=== PATIENT | female | born 1945 ===

== ENCOUNTER 2020-05-16 08:34 | Inpatient (IN) ==
[2020-05-16 09:22] LABS: Basophils % 0.1 % (0.0-0.8); Hematocrit 32.9 VOL% (35.7-47.0); Hemoglobin 11.8 GM/DL (12.0-16.0); Immature Granulocytes % 0.5 %; Immature Granulocytes Absolute 0.05 #; Lymphocytes # 0.7 10*3/uL (1.4-4.0); Mean Corpuscular HGB Conc 35.9 GM/DL (32-36); Mean Corpuscular Volume 82.3 FL (87-102); Mean Platelet Volume 9.4 FL (9.6-12.0); Monocytes % 3.9 % (1.7-12.7); Neutrophils % 88.5 % (38.7-73.9); Platelet Count 274 T/CUMM (130-400); Red Cell Distribution Width 15.8 % (9.3-17.3); White Blood Count 9.7 T/CUMM (4-12)
[2020-05-16] MEDS ORDERED: LEVOFLOXACIN INJ 750 MG in PREMIX 1 EACH IV STA (09:36)
[2020-05-16 09:45] LABS: Albumin 3.1 G/DL (3.4-5.0); Bilirubin,Total 0.6 MG/DL (0.2-1.0); Calcium 8.6 MG/DL (8.5-10.1); Osmolality,Calculated 260.9 MOS/KG (273-304); Potassium 3.4 MMOL/L (3.5-5.1); Total Protein 7.7 G/DL (6.4-8.3)
[2020-05-16] MEDS ORDERED: DEXTROSE 50% 25 GM/50 ML VIAL IV PRN (10:48)
[2020-05-16] MEDS ORDERED: ONDANSETRON 4 MG/2 ML VIAL IV PRN (10:48)
[2020-05-16] MEDS ORDERED: GLUCAGON 1 MG VIAL IM PRN (10:48)
[2020-05-16] MEDS: ENOXAPARIN 40 MG/0.4 ML SYRINGE SUBCUT SCH (11:23)
[2020-05-16] MEDS: DEXAMETHASONE 4 MG/1 ML VIAL IV SCH (11:26)
[2020-05-16] MEDS: POTASSIUM CHLORIDE 20 MEQ TABLET PO PRN ×3 (14:58→20:54)
[2020-05-16] MEDS ORDERED: ALBUTEROL 2.5 MG/3 ML NEB RESP TX PRN (16:53)
[2020-05-16] MEDS: MELATONIN 3 MG TABLET PO PRN (20:54)
[2020-05-16] MEDS: ASCORBIC ACID 500 MG TABLET PO SCH (20:54)
[2020-05-16] MEDS: guaiFENesin 200 MG/10 ML UDCUP PO PRN (22:08)
[2020-05-17 06:32] LABS: Hematocrit 34.8 VOL% (35.7-47.0); Hemoglobin 12.2 GM/DL (12.0-16.0); Immature Granulocytes % 0.5 %; Immature Granulocytes Absolute 0.04 #; Lymphocytes # 0.8 10*3/uL (1.4-4.0); Lymphocytes % 9.4 % (21.3-54.2); Mean Corpuscular HGB Conc 35.1 GM/DL (32-36); Mean Corpuscular Volume 84.3 FL (87-102); Mean Platelet Volume 9.5 FL (9.6-12.0); Monocytes % 8.3 % (1.7-12.7); Neutrophils % 81.8 % (38.7-73.9); Platelet Count 317 T/CUMM (130-400); Red Blood Count 4.13 MC/CUMM (3.8-5.5); White Blood Count 8.2 T/CUMM (4-12)
[2020-05-17 08:15] LABS: Albumin 3.1 G/DL (3.4-5.0); Calcium 8.9 MG/DL (8.5-10.1); Osmolality,Calculated 264.7 MOS/KG (273-304); Potassium 4.2 MMOL/L (3.5-5.1); Risk Ratio 1.78; Thyroid Stimulating Hormone 0.247 uIU/ml (0.358-3.74); VLDL CHOLESTEROL 29.4 MG/DL
[2020-05-17 08:39] LABS: Ferritin 2309.9 ng/ml (8-252)
[2020-05-17] MEDS: guaiFENesin 200 MG/10 ML UDCUP PO PRN ×3 (10:02→20:20)
[2020-05-17] MEDS: ZINC GLUCONATE 50 MG TABLET PO SCH (10:05)
[2020-05-17] MEDS: PANTOPRAZOLE 40 MG TABLET PO SCH (10:05)
[2020-05-17] MEDS: ASCORBIC ACID 500 MG TABLET PO SCH ×2 (10:05→20:20)
[2020-05-17] MEDS: CETIRIZINE 10 MG TABLET PO SCH (10:05)
[2020-05-17] MEDS: ENOXAPARIN 40 MG/0.4 ML SYRINGE SUBCUT SCH (10:05)
[2020-05-17] MEDS: DEXAMETHASONE 4 MG/1 ML VIAL IV SCH (10:05)
[2020-05-17] MEDS: hydroCHLOROthiazide 25 MG TABLET PO SCH (10:05)
[2020-05-17] MEDS: CHOLECALCIFEROL 1,000 UNIT TABLET PO SCH (10:05)
[2020-05-17] MEDS: SODIUM CHLORIDE 0.9% 1,000 ML IV SCH (11:20)
[2020-05-17] MEDS: PREGABALIN 100 MG CAPSULE PO SCH ×2 (11:25→20:20)
[2020-05-17] MEDS ORDERED: PREGABALIN 100 MG CAPSULE PO SCH (16:53)
[2020-05-17] MEDS: ACETAMINOPHEN 325 MG TABLET PO PRN (20:20)
[2020-05-17] MEDS: MELATONIN 3 MG TABLET PO PRN (20:20)
[2020-05-18] MEDS: SODIUM CHLORIDE 0.9% 1,000 ML IV SCH (04:05)
[2020-05-18 07:15] LABS: Basophils % 0.1 % (0.0-0.8); Eosinophils % 0.1 % (0.00-10.9); Hematocrit 31.3 VOL% (35.7-47.0); Hemoglobin 11.2 GM/DL (12.0-16.0); Immature Granulocytes % 0.7 %; Immature Granulocytes Absolute 0.06 #; Lymphocytes # 0.9 10*3/uL (1.4-4.0); Lymphocytes % 9.6 % (21.3-54.2); Mean Corpuscular HGB Conc 35.8 GM/DL (32-36); Mean Corpuscular Volume 83.2 FL (87-102); Mean Platelet Volume 9.8 FL (9.6-12.0); Monocytes % 9.1 % (1.7-12.7); Neutrophils % 80.4 % (38.7-73.9); Platelet Count 340 T/CUMM (130-400); Red Blood Count 3.76 MC/CUMM (3.8-5.5); Red Cell Distribution Width 15.9 % (9.3-17.3); White Blood Count 8.8 T/CUMM (4-12)
[2020-05-18 07:26] LABS: Albumin 2.8 G/DL (3.4-5.0); Bilirubin,Direct 0.15 MG/DL (0.0-0.20); Bilirubin,Indirect 0.9 MG/DL (0.0-1.0); Calcium 8.2 MG/DL (8.5-10.1); Osmolality,Calculated 269.1 MOS/KG (273-304); Potassium 3.8 MMOL/L (3.5-5.1); Total Protein 7.1 G/DL (6.4-8.3); Total Protein 7.2 G/DL (6.4-8.3)
[2020-05-18 07:45] LABS: PT Patient Result 10.3 SECS (9.8-11.9); Partial Thromboplastin Time 27.8 SECS (23.9-33.8)
[2020-05-18 09:19] LABS: Hepatitis B Core IgM Quant 0.34 Index; Hepatitis B Surface Ag Quant < 0.10 Index; Hepatitis B Surface Ag Result Non-Reactive (NonReactive); Hepatitis C Virus Ab Quant 0.06 Index; Hepatitis C Virus Ab Result Non-Reactive (NonReactive)
[2020-05-18] MEDS: LEVOFLOXACIN INJ 750 MG in PREMIX 1 EACH IV SCH (09:40)
[2020-05-18] MEDS: CETIRIZINE 10 MG TABLET PO SCH (09:40)
[2020-05-18] MEDS: PREGABALIN 100 MG CAPSULE PO SCH ×2 (09:40→20:42)
[2020-05-18] MEDS: CHOLECALCIFEROL 1,000 UNIT TABLET PO SCH (09:40)
[2020-05-18] MEDS: DEXAMETHASONE 4 MG/1 ML VIAL IV SCH (09:40)
[2020-05-18] MEDS: ASCORBIC ACID 500 MG TABLET PO SCH ×2 (09:40→20:42)
[2020-05-18] MEDS: PANTOPRAZOLE 40 MG TABLET PO SCH (09:40)
[2020-05-18] MEDS: hydroCHLOROthiazide 25 MG TABLET PO SCH (09:40)
[2020-05-18] MEDS: ZINC GLUCONATE 50 MG TABLET PO SCH (09:40)
[2020-05-18] MEDS: ENOXAPARIN 40 MG/0.4 ML SYRINGE SUBCUT SCH (10:00)
[2020-05-18] MEDS ORDERED: REMDESIVIR 200 MG in SODIUM CHLORIDE 0.9% 210 ML IV ONE (11:30)
[2020-05-18] MEDS: MELATONIN 3 MG TABLET PO PRN (20:42)
[2020-05-19 04:04] LABS: Basophils % 0.2 % (0.0-0.8); Eosinophils % 0.1 % (0.00-10.9); Hematocrit 34.4 VOL% (35.7-47.0); Hemoglobin 11.9 GM/DL (12.0-16.0); Immature Granulocytes % 1.1 %; Immature Granulocytes Absolute 0.11 #; Lymphocytes # 1.3 10*3/uL (1.4-4.0); Lymphocytes % 12.7 % (21.3-54.2); Mean Corpuscular HGB Conc 34.6 GM/DL (32-36); Mean Corpuscular Volume 83.3 FL (87-102); Mean Platelet Volume 9.1 FL (9.6-12.0); Monocytes % 13.5 % (1.7-12.7); Neutrophils % 72.4 % (38.7-73.9); Platelet Count 412 T/CUMM (130-400); Red Blood Count 4.13 MC/CUMM (3.8-5.5)
[2020-05-19 04:28] LABS: Albumin 3.1 G/DL (3.4-5.0); Bilirubin,Direct 0.17 MG/DL (0.0-0.20); Bilirubin,Indirect 0.4 MG/DL (0.0-1.0); Bilirubin,Total 0.6 MG/DL (0.2-1.0); Calcium 8.3 MG/DL (8.5-10.1); Total Protein 7.5 G/DL (6.4-8.3)
[2020-05-19 04:31] LABS: Albumin 3.1 G/DL (3.4-5.0); Bilirubin,Total 1.3 MG/DL (0.2-1.0); Calcium 8.4 MG/DL (8.5-10.1); Osmolality,Calculated 273.8 MOS/KG (273-304); Potassium 3.8 MMOL/L (3.5-5.1); Total Protein 7.5 G/DL (6.4-8.3)
[2020-05-19 04:44] LABS: Ferritin 2332.4 ng/ml (8-252)
[2020-05-19] MEDS: hydroCHLOROthiazide 25 MG TABLET PO SCH (08:01)
[2020-05-19] MEDS: ZINC GLUCONATE 50 MG TABLET PO SCH (08:01)
[2020-05-19] MEDS: CHOLECALCIFEROL 1,000 UNIT TABLET PO SCH (08:01)
[2020-05-19] MEDS: PANTOPRAZOLE 40 MG TABLET PO SCH (08:01)
[2020-05-19] MEDS: CETIRIZINE 10 MG TABLET PO SCH (08:01)
[2020-05-19] MEDS: ASCORBIC ACID 500 MG TABLET PO SCH ×2 (08:01→23:06)
[2020-05-19] MEDS: PREGABALIN 100 MG CAPSULE PO SCH ×2 (08:01→23:06)
[2020-05-19] MEDS: DEXAMETHASONE 4 MG/1 ML VIAL IV SCH (08:02)
[2020-05-19] MEDS: REMDESIVIR 100 MG in SODIUM CHLORIDE 0.9% 100 ML IV SCH (09:05)
[2020-05-19] MEDS: ENOXAPARIN 40 MG/0.4 ML SYRINGE SUBCUT SCH (10:13)
[2020-05-19] MEDS: ACETAMINOPHEN 325 MG TABLET PO PRN (23:07)
[2020-05-20 05:46] LABS: Basophils % 0.1 % (0.0-0.8); Eosinophils % 0.2 % (0.00-10.9); Hematocrit 35.1 VOL% (35.7-47.0); Hemoglobin 12.7 GM/DL (12.0-16.0); Lymphocytes # 1.2 10*3/uL (1.4-4.0); Lymphocytes % 7.9 % (21.3-54.2); Mean Corpuscular HGB Conc 36.2 GM/DL (32-36); Mean Corpuscular Volume 81.8 FL (87-102); Mean Platelet Volume 9.1 FL (9.6-12.0); Monocytes % 10.5 % (1.7-12.7); Neutrophils % 79.3 % (38.7-73.9); Platelet Count 428 T/CUMM (130-400); Red Blood Count 4.29 MC/CUMM (3.8-5.5); Red Cell Distribution Width 15.9 % (9.3-17.3); White Blood Count 14.7 T/CUMM (4-12)
[2020-05-20 06:27] LABS: Bilirubin,Total 1.7 MG/DL (0.2-1.0); Calcium 8.9 MG/DL (8.5-10.1); Ferritin 2092.7 ng/ml (8-252); Osmolality,Calculated 269.2 MOS/KG (273-304); Potassium 3.2 MMOL/L (3.5-5.1); Total Protein 7.7 G/DL (6.4-8.3)
[2020-05-20] MEDS: REMDESIVIR 100 MG in SODIUM CHLORIDE 0.9% 100 ML IV SCH (08:54)
[2020-05-20] MEDS: LEVOFLOXACIN INJ 750 MG in PREMIX 1 EACH IV SCH (08:55)
[2020-05-20] MEDS: ASCORBIC ACID 500 MG TABLET PO SCH ×2 (08:59→20:56)
[2020-05-20] MEDS: CETIRIZINE 10 MG TABLET PO SCH (08:59)
[2020-05-20] MEDS: hydroCHLOROthiazide 25 MG TABLET PO SCH (08:59)
[2020-05-20] MEDS: PREGABALIN 100 MG CAPSULE PO SCH ×2 (08:59→20:56)
[2020-05-20] MEDS: ZINC GLUCONATE 50 MG TABLET PO SCH (08:59)
[2020-05-20] MEDS: CHOLECALCIFEROL 1,000 UNIT TABLET PO SCH (08:59)
[2020-05-20] MEDS: PANTOPRAZOLE 40 MG TABLET PO SCH (08:59)
[2020-05-20] MEDS: DEXAMETHASONE 4 MG/1 ML VIAL IV SCH (08:59)
[2020-05-20] MEDS: ENOXAPARIN 40 MG/0.4 ML SYRINGE SUBCUT SCH (10:54)
[2020-05-20] MEDS: POTASSIUM CHLORIDE 20 MEQ TABLET PO PRN ×2 (16:39→17:39)
[2020-05-20] MEDS: ACETAMINOPHEN 325 MG TABLET PO PRN (20:56)
[2020-05-21 05:04] LABS: Basophils % 0.2 % (0.0-0.8); Eosinophils # 0.1 10*3/uL (0.0-0.87); Eosinophils % 0.5 % (0.00-10.9); Hematocrit 33.5 VOL% (35.7-47.0); Immature Granulocytes % 3.9 %; Immature Granulocytes Absolute 0.55 #; Lymphocytes # 1.3 10*3/uL (1.4-4.0); Lymphocytes % 8.8 % (21.3-54.2); Mean Corpuscular HGB Conc 35.8 GM/DL (32-36); Mean Corpuscular Volume 82.7 FL (87-102); Mean Platelet Volume 9.5 FL (9.6-12.0); Monocytes % 8.5 % (1.7-12.7); Neutrophils % 78.1 % (38.7-73.9); Platelet Count 480 T/CUMM (130-400); Red Blood Count 4.05 MC/CUMM (3.8-5.5); Red Cell Distribution Width 15.8 % (9.3-17.3); White Blood Count 14.2 T/CUMM (4-12)
[2020-05-21 05:39] LABS: Albumin 2.9 G/DL (3.4-5.0); Calcium 9.1 MG/DL (8.5-10.1); Osmolality,Calculated 264.7 MOS/KG (273-304); Potassium 3.9 MMOL/L (3.5-5.1); Total Protein 7.5 G/DL (6.4-8.3)
[2020-05-21 06:07] LABS: Anisocytosis 1+; Eosinophils 1 % (0-10); Hypochromasia 2+; Lymphocytes 10 % (20-55); Macrocytosis 1+; Nucleated Red Blood Cells 4 (0-5); Platelet Estimate Increased; Segmented Neutrophils 80 % (50-85); Total Cells Counted 100
[2020-05-21] MEDS: ASCORBIC ACID 500 MG TABLET PO SCH ×2 (08:46→20:48)
[2020-05-21] MEDS: PREGABALIN 100 MG CAPSULE PO SCH ×2 (08:47→20:48)
[2020-05-21] MEDS: ZINC GLUCONATE 50 MG TABLET PO SCH (08:47)
[2020-05-21] MEDS: PANTOPRAZOLE 40 MG TABLET PO SCH (08:47)
[2020-05-21] MEDS: ENOXAPARIN 40 MG/0.4 ML SYRINGE SUBCUT SCH ×2 (08:47→11:01)
[2020-05-21] MEDS: DEXAMETHASONE 4 MG/1 ML VIAL IV SCH (08:47)
[2020-05-21] MEDS: CETIRIZINE 10 MG TABLET PO SCH (08:47)
[2020-05-21] MEDS: hydroCHLOROthiazide 25 MG TABLET PO SCH (08:47)
[2020-05-21] MEDS: CHOLECALCIFEROL 1,000 UNIT TABLET PO SCH (08:47)
[2020-05-21] MEDS ORDERED: LEVOFLOXACIN INJ 750 MG in PREMIX 1 EACH IV SCH (09:00)
[2020-05-21] MEDS: REMDESIVIR 100 MG in SODIUM CHLORIDE 0.9% 100 ML IV SCH (10:20)
[2020-05-21] MEDS: ACETAMINOPHEN 325 MG TABLET PO PRN (20:48)
[2020-05-21] MEDS: MELATONIN 3 MG TABLET PO PRN (20:48)
[2020-05-22 06:33] LABS: Basophils # 0.1 10*3/uL (0.0-0.2); Basophils % 0.4 % (0.0-0.8); Eosinophils # 0.1 10*3/uL (0.0-0.87); Eosinophils % 0.6 % (0.00-10.9); Hematocrit 34.3 VOL% (35.7-47.0); Hemoglobin 12.6 GM/DL (12.0-16.0); Immature Granulocytes % 5.1 %; Immature Granulocytes Absolute 0.89 #; Lymphocytes % 5.8 % (21.3-54.2); Mean Corpuscular HGB Conc 36.7 GM/DL (32-36); Mean Corpuscular Volume 80.1 FL (87-102); Mean Platelet Volume 9.4 FL (9.6-12.0); Monocytes % 5.9 % (1.7-12.7); Neutrophils % 82.2 % (38.7-73.9); Platelet Count 518 T/CUMM (130-400); Red Blood Count 4.28 MC/CUMM (3.8-5.5); Red Cell Distribution Width 15.8 % (9.3-17.3); White Blood Count 17.5 T/CUMM (4-12)
[2020-05-22 06:55] LABS: Albumin 2.9 G/DL (3.4-5.0); Bilirubin,Total 0.6 MG/DL (0.2-1.0); Calcium 8.7 MG/DL (8.5-10.1); Ferritin 1538.6 ng/ml (8-252); Osmolality,Calculated 270.2 MOS/KG (273-304); Potassium 3.8 MMOL/L (3.5-5.1); Total Protein 7.5 G/DL (6.4-8.3)
[2020-05-22 06:56] LABS: Lymphocytes 7 % (20-55); Total Cells Counted 100
[2020-05-22 06:59] LABS: Anisocytosis 1+; Hypochromasia 2+; Macrocytosis 1+; Metamyelocytes 5 %; Myelocytes 1 %; Platelet Estimate Increased; Segmented Neutrophils 83 % (50-85)
[2020-05-22] MEDS: CETIRIZINE 10 MG TABLET PO SCH ×2 (07:52→08:17)
[2020-05-22] MEDS: CHOLECALCIFEROL 1,000 UNIT TABLET PO SCH ×2 (07:52→08:17)
[2020-05-22] MEDS: PANTOPRAZOLE 40 MG TABLET PO SCH ×2 (07:52→08:17)
[2020-05-22] MEDS: ZINC GLUCONATE 50 MG TABLET PO SCH ×2 (07:53→08:17)
[2020-05-22] MEDS: PREGABALIN 100 MG CAPSULE PO SCH ×2 (07:53→08:17)
[2020-05-22] MEDS: ASCORBIC ACID 500 MG TABLET PO SCH ×2 (07:54→08:17)
[2020-05-22] MEDS: DEXAMETHASONE 4 MG/1 ML VIAL IV SCH ×2 (07:59→08:17)
[2020-05-22] MEDS: REMDESIVIR 100 MG in SODIUM CHLORIDE 0.9% 100 ML IV SCH (09:31)
[2020-05-22] MEDS: ENOXAPARIN 40 MG/0.4 ML SYRINGE SUBCUT SCH ×2 (09:33→10:12)
[2020-05-22 11:21] VITALS: BP 108/73
== END 2020-05-22 12:39 | disposition home health service (06) | DRG 177 ==
LOC: N.ED 08:34 → N.EDINP 10:43 → SUATTDRO 10:43 → N.2E 11:33
PROVIDERS: ADMIT Internal Medicine; ATTEND Internal Medicine